=== PATIENT | female | born 1980 | race African-American/Black ===

== ENCOUNTER 2020-05-11 01:24 | Emergency (ER) | payer SELFPAY ==
[~2020-05-11] VITALS: Ht 167.6 cm; Wt 60.8 kg
[2020-05-11 01:24] VITALS: BP 131/90
--- NOTE | 2020-05-11 01:30 | NUR ---
PATIENT 40 Y/O FEMALE BIBA FROM [facility] FOR C/O SEIZURE UNWITNESSED X 30 MIN AGO. AMBUALTORY NO RESPIRATIORY DISTRESS NOTED. VSS. PER PATIENT, "I HAVE SIZURES BECAUSE I HAVE BRAIN CANCER END STAGE. YOU CAN'T TAKE OFF MY CLOTHES BECAUSE THE ONCOLOGIST HAS A TRAKING DEVICE IN THEM. HE IS AT [facility] AND KNOWS I AM HERE." PATIENT CALM AND ALERT. PATIENT ORIENTED TO PERSON, SITUATION AND TIME. SIEZURE PRECAUTIONS IN PLACE. MEDHX: CHF, DM II, SEIZURES, "BRAIN CA." ALLERGIES: NKA
--- NOTE | 2020-05-11 02:02 | NUR ---
LABS DRAWN AND GIVEN TO HAMMER REPAIRER. IV PLACED IN L AC 22G. IV SITE IS PATIENT.
[2020-05-11 02:16] LABS: HEMATOCRIT 38.2 % (36-48); HEMOGLOBIN 11.7 g/dL (12.0-16.0); MEAN CORPUSCULAR HEMOGLOBIN 21 pg (27-31); MEAN CORPUSCULAR HGB CONC 31 g/dL (33-37); MEAN CORPUSCULAR VOLUME 67.5 fL (80-94); PLATELET COUNT (AUTO) 198 K/uL (140-450); RED BLOOD CELL COUNT(AUTO) 5.65 MIL/uL (4.20-5.40); RED CELL DISTRIBUTION WIDTH 24.6 % (11.6-13.7); WHITE BLOOD COUNT (AUTO) 6.3 K/uL (4.8-10.8)
[2020-05-11 02:33] LABS: ALBUMIN 3.6 g/dL (3.4-5.0); ASPARTATE AMINOTRANSFERASE 32 U/L (15-37); CARBON DIOXIDE 25.4 mmol/L (21-32); CHLORIDE 102 mmol/L (98-107); GFR ARICAN-AMERICAN 80 mL/min (>90); GLUCOSE 157 mg/dL (74-106); POTASSIUM 3.4 mmol/L (3.5-5.1); SODIUM SERUM 140 mmol/L (136-145); TOTAL BILIRUBIN 0.5 mg/dL (0.0-1.0); UREA NITROGEN, BLOOD 15 mg/dL (7-18)
[2020-05-11 02:35] LABS: PHENYTOIN (DILANTIN) < 0.5 ug/ml (10.0-20.0)
[2020-05-11 02:45] LABS: EOSINOPHILS % (MANUAL) 3 % (0-4); LYMPHOCYTES % (MANUAL) 42 % (20-46); MONOCYTES % (MANUAL) 8 % (5-12)
[2020-05-11] MEDS ORDERED: PHENYTOIN 100 MG CAPER PO ONE (03:20)
--- NOTE | 2020-05-11 03:34 | NUR ---
Patient appears to be resting comfortably in bed. Vital Signs within normal limits. Respirations even and unlabored.
[2020-05-11 04:00] VITALS: BP 128/87
--- NOTE | 2020-05-11 04:00 | NUR ---
Patient discharged with v/s stable. Written and verbal after care instructions given and explained. Patient alert, oriented and verbalized understanding of instructions. Ambulatory with steady gait. All questions addressed prior to discharge. ID band removed. Patient advised to follow up with PMD. Rx of DILANTIN given. Patient educated on indication of medication including possible reaction and side effects. Opportunity to ask questions provided and answered.
--- NOTE | 2020-05-11 04:00 | NUR ---
IV removed, catheter intact and site benign. Applied folded 4x4 gauze and tape to stop bleeding.
== END 2020-05-11 04:00 | disposition home or self-care (01) ==
LOC: EDBD 01:24 → MED 01:24
DX: G40.909 Epilepsy, unspecified, not intractable, without status epilepticus (principal); I50.9 Heart failure, unspecified; E11.9 Type 2 diabetes mellitus without complications
CPT/HCPCS: 36415; 80053; 80185; 85025; 99283

== ENCOUNTER 2020-05-11 21:34 | Emergency (ER) | payer SELFPAY ==
[~2020-05-11] VITALS: Ht 167.6 cm; Wt 61.2 kg
[2020-05-11 21:53] VITALS: BP 122/80
--- NOTE | 2020-05-11 21:55 | NUR ---
TO LOBBY A/W BED AMBULATORY
--- NOTE | 2020-05-11 22:00 | NUR ---
PATIENT SLEEPY, SITTING DOWN
[2020-05-11 22:06] VITALS: BP 122/80
--- NOTE | 2020-05-11 22:25 | NUR ---
SEEN AND EXAMINED BY LUIS FERNANDO WITH ORDERS AND CARRIED OUT.
--- NOTE | 2020-05-11 22:39 | NUR ---
Blood for labwork drawn from left hand . Patient tolerated well.
[2020-05-11 22:54] LABS: BASOPHILS # (AUTO) 0.1 K/uL (0.00-0.22); BASOPHILS % (AUTO) 0.7 % (0.0-2.0); EOSINOPHILS # (AUTO) 0.2 K/uL (0-0.4); EOSINOPHILS % (AUTO) 2.2 % (0.0-4.0); HEMATOCRIT 37.3 % (36-48); HEMOGLOBIN 11.5 g/dL (12.0-16.0); LYMPHOCYTES # (AUTO) 2.7 K/uL (2.5-16.5); LYMPHOCYTES % (AUTO) 34.9 % (20.5-51.1); MEAN CORPUSCULAR HEMOGLOBIN 21 pg (27-31); MEAN CORPUSCULAR HGB CONC 31 g/dL (33-37); MEAN CORPUSCULAR VOLUME 67.2 fL (80-94); MONOCYTES # (AUTO) 0.7 K/uL (0.8-1.0); NEUTROPHILS # (AUTO) 4.2 K/uL (1.8-7.7); NEUTROPHILS % (AUTO) 53.2 % (42.2-75.2); PLATELET COUNT (AUTO) 217 K/uL (140-450); RED BLOOD CELL COUNT(AUTO) 5.55 MIL/uL (4.20-5.40); RED CELL DISTRIBUTION WIDTH 24.3 % (11.6-13.7); WHITE BLOOD COUNT (AUTO) 7.8 K/uL (4.8-10.8)
[2020-05-11 23:11] LABS: ALBUMIN 3.6 g/dL (3.4-5.0); ANION GAP 12.9 (8-16); ASPARTATE AMINOTRANSFERASE 25 U/L (15-37); CARBON DIOXIDE 24.6 mmol/L (21-32); CHLORIDE 103 mmol/L (98-107); CREATININE 0.8 mg/dL (0.6-1.3); GFR ARICAN-AMERICAN 104 mL/min (>90); GLUCOSE 86 mg/dL (74-106); POTASSIUM 3.5 mmol/L (3.5-5.1); SODIUM SERUM 137 mmol/L (136-145); TOTAL BILIRUBIN 0.3 mg/dL (0.0-1.0); UREA NITROGEN, BLOOD 10 mg/dL (7-18)
--- NOTE | 2020-05-12 00:10 | NUR ---
PT UNABLE TO PROVIDE URINE AT THIS TIME
--- NOTE | 2020-05-12 00:13 | NUR ---
Patient discharged with v/s stable. Written and verbal after care instructions given and explained. Patient verbalized understanding. Ambulatory with steady gait. All questions addressed prior to discharge. Advised to follow up with PMD.
== END 2020-05-12 00:13 | disposition home or self-care (01) ==
LOC: MED 21:34
DX: I51.9 Heart disease, unspecified (principal); E11.9 Type 2 diabetes mellitus without complications; Z00.01 Encounter for general adult medical examination with abnormal findings
CPT/HCPCS: 36415; 80053; 82140; 85025; 99283; G0482